=== PATIENT | female | born 1965 | race Two or more races ===

== ENCOUNTER 2020-05-10 07:29 | Emergency (ER) | payer OTHER ==
[2020-05-10 07:36] VITALS: BMI 24.3
[2020-05-10] MEDS ORDERED: ACETAMINOPHEN 1000 MG/100 ML VIAL (NON FORMULARY) IVPB ONE (08:33)
[2020-05-10] MEDS ORDERED: LACTATED RINGERS SOLUTION 1000 ML INFUS.BAG IV ONE (08:34)
[2020-05-10 08:44] LABS: BASO % 0.9 % (0-2.0); EOS % 3.5 % (0-4.5); HEMATOCRIT 34.9 % (32.4-45.2); HEMOGLOBIN 11.7 GM/dL (10.7-15.3); LYMPH % 35.7 % (8-40); MCH 21.9 pg (25.7-33.7); MCHC 33.3 g/dl (32.0-36.0); MEAN CELL VOLUME 65.8 fl (80-96); MEAN PLT VOLUME 9.2 fl (7.5-11.1); MONO % 11.5 % (3.8-10.2); NEUT % 48.4 % (42.8-82.8); PLATELET COUNT 296 K/MM3 (134-434); RBC 5.31 M/mm3 (3.60-5.2); RDW 16.6 % (11.6-15.6); WHITE BLOOD COUNT 5.4 K/mm3 (4.0-10.0)
[2020-05-10] MEDS ORDERED: ACETAMINOPHEN INJECTION 100 ML IVPB ONE (08:45)
[2020-05-10 09:00] LABS: POTASSIUM 3.2 mmol/L (3.5-5.1)
[2020-05-10 09:02] LABS: CALCIUM 9.2 mg/dL (8.5-10.1)
[2020-05-10 09:03] LABS: ALBUMIN 3.6 g/dl (3.4-5.0); BLOOD UREA NITROGEN 9.6 mg/dL (7-18)
[2020-05-10] MEDS ORDERED: POTASSIUM CHLORIDE ORAL LIQUID 20 MEQ/15 ML PO ONE (09:03)
[2020-05-10 09:06] LABS: CREATININE 0.6 mg/dL (0.55-1.3)
[2020-05-10 09:07] LABS: BILIRUBIN,TOTAL 0.4 mg/dL (0.2-1); TOT PROT 7.3 g/dl (6.4-8.2)
[2020-05-10 09:29] LABS: PH,URINE 8.5 (5.0-8.0); URINE APPEARANCE TURBID; URINE BILIRUBIN NEGATIVE (NEGATIVE); URINE COLOR YELLOW; URINE GLUCOSE (UA) NEGATIVE (NEGATIVE); URINE KETONE NEGATIVE (NEGATIVE); URINE LEUK ESTERASE NEGATIVE (NEGATIVE); URINE NITRITE NEGATIVE (NEGATIVE); URINE PROTEIN NEGATIVE (NEGATIVE); URINE UROBILINOGEN 0.2 mg/dL (0.2-1.0)
[2020-05-10 09:30] LABS: EPI CELLS 5 /uL (0-25.1); HYALINE CASTS 1 /uL (0-3.1); URINE BACTERIA 19 /uL (0-1359); URINE RBC 11 /uL (0-23.9); URINE WBC 8 /uL (0-25.8)
[2020-05-10] MEDS ORDERED: POTASSIUM CHLORIDE ORAL LIQUID 20 MEQ/15 ML ONE (10:02)
[2020-05-10 11:37] LABS: ANISOCYTOSIS 1+; MACROCYTOSIS 0; PLATELET ESTIMATE NORMAL; TARGET CELLS 1+
[2020-05-10] MEDS ORDERED: KETOROLAC TROMETHAMINE 30 MG/1 ML VIAL IM ONE (13:15)
[2020-05-10] MEDS ORDERED: KETOROLAC TROMETHAMINE 15 MG/ML VIAL IVPUSH ONE (13:20)
[2020-05-10] MEDS ORDERED: KETOROLAC TROMETHAMINE 15 MG/ML VIAL ONE (13:21)
[2020-05-10 13:36] VITALS: BP 132/82; PULSE 52; TEMP 98
== END 2020-05-10 13:35 | disposition home or self-care (01) ==
LOC: JER 07:29
PROC: 3E0333Z Introduction of Anti-inflammatory into Peripheral Vein, Percutaneous Approach (ICD-10-PCS; principal; 2020-05-10)
PROC: 3E0333Z Introduction of Anti-inflammatory into Peripheral Vein, Percutaneous Approach (ICD-10-PCS; 2020-05-10)
DX: R10.31 Right lower quadrant pain (principal)
CPT/HCPCS: 36415; 74176-TC; 80053; 81003; 85025; 87086; 99285-25; J0131

== ENCOUNTER 2023-04-19 15:46 | Emergency (ER) | payer OTHER ==
[2023-04-19 15:59] VITALS: BMI 30.5
[2023-04-19] MEDS ORDERED: ACETAMINOPHEN 500 MG TABLET (FP) ONE (17:54)
[2023-04-19] MEDS: ACETAMINOPHEN 500 MG TABLET (FP) PO ONE (17:56)
[2023-04-19 17:57] LABS: BASO % 1.2 % (0-2.0); EOS % 2.9 % (0-4.5); HEMATOCRIT 33.9 % (32.4-45.2); HEMOGLOBIN 11.1 GM/dL (10.7-15.3); LYMPH % 36.5 % (8-40); MCH 21.5 pg (25.7-33.7); MCHC 32.7 g/dl (32.0-36.0); MEAN CELL VOLUME 65.8 fl (80-96); MEAN PLT VOLUME 8.7 fl (7.5-11.1); MONO % 7.3 % (3.8-10.2); NEUT % 52.1 % (42.8-82.8); PLATELET COUNT 285 10^3/uL (134-434); RBC 5.15 M/mm3 (3.60-5.2); RDW 16.6 % (11.6-15.6); WHITE BLOOD COUNT 6.8 K/mm3 (4.0-10.0)
[2023-04-19 18:02] LABS: PH,URINE 6.5 (5.0-8.0); URINE APPEARANCE CLEAR; URINE BILIRUBIN NEGATIVE (NEGATIVE); URINE COLOR YELLOW; URINE GLUCOSE (UA) NEGATIVE (NEGATIVE); URINE KETONE NEGATIVE (NEGATIVE); URINE LEUK ESTERASE NEGATIVE (NEGATIVE); URINE NITRITE NEGATIVE (NEGATIVE); URINE PROTEIN NEGATIVE (NEGATIVE); URINE UROBILINOGEN 0.2 mg/dL (0.2-1.0)
[2023-04-19 18:16] VITALS: BP 132/81; PULSE 46; RESP 17; TEMP 98.3
[2023-04-19 18:21] LABS: POTASSIUM 3.6 mmol/L (3.5-5.1)
[2023-04-19 18:22] LABS: ANISOCYTOSIS 1+; MACROCYTOSIS 0; OVALOCYTE 2+
[2023-04-19 18:23] LABS: ALBUMIN 3.1 g/dl (3.4-5.0); BLOOD UREA NITROGEN 15.4 mg/dL (7-18); CALCIUM 8.2 mg/dL (8.5-10.1)
[2023-04-19 18:26] LABS: CREATININE 0.5 mg/dL (0.55-1.3)
[2023-04-19 18:28] LABS: BILIRUBIN,TOTAL 0.3 mg/dL (0.2-1)
[2023-04-19] MEDS ORDERED: PHENAZOPYRIDINE HCL 100 MG TABLET (FP) PO ONE (18:56)
[2023-04-19] MEDS ORDERED: PHENAZOPYRIDINE HCL 100 MG TABLET (FP) ONE (19:00)
== END 2023-04-19 19:10 | disposition home or self-care (01) ==
LOC: JER 15:46
DX: R39.15 Urgency of urination (principal); R10.2 Pelvic and perineal pain; N39.43 Post-void dribbling; N31.8 Other neuromuscular dysfunction of bladder
CPT/HCPCS: 36415; 80053; 81003; 85025; 87086; 99284-25